=== PATIENT | female | born 1975 | race American Indian/Alaskan Native ===

== ENCOUNTER 2017-10-14 09:34 | Day surgery (SDC) | payer MEDICAID ==
[~2017-10-14 09:34] MED LIST: NACL 0.9% 1000 ML 1,000 ML IV SCH
[2017-10-14] MEDS ORDERED: XYLOCAINE MPF 2% ONE (11:54)
[2017-10-14] MEDS ORDERED: DIPRIVAN 10 MG/ML IV ONE (11:54)
--- NOTE | 2017-10-14 11:58 | Anesthesia Day of Surgery ---
Anesthesia Day of Surgery - Day of Surgery Patient Examined: Yes Patient H&P Reviewed: Yes Patient is NPO: Yes Beta Blockers: No
--- NOTE | 2017-10-14 11:59 | Anesthesia Consultation ---
Anesthesia Consult and Med Hx - Airway Anesthetic Teeth Evaluation: Good ROM Head & Neck: Adequate Mental/Hyoid Distance: Adequate Mallampati Class: Class II Intubation Access Assessment: Probably Good - Pulmonary Exam CTA: Yes - Cardiac Exam Cardiac Exam: No Murmur - Pre-Operative Health Status ASA Pre-Surgery Classification: ASA2 - Pulmonary Hx Smoking: Yes (10 CIGARETTES PER DAY X 12 YRS;) Hx Asthma: No Hx Respiratory Symptoms: No SOB: No COPD: No Home Oxygen Therapy: No Hx Pneumonia: No Hx Sleep Apnea: No - Cardiovascular System Hx Hypertension: No Hx Coronary Artery Disease: No Hx Heart Attack/AMI: No Hx Angina: No Hx Percutaneous Transluminal Coronary Angioplasty (PTCA): No Hx Cardia Arrhythmia: No Hx Pacemaker: No Hx Internal Defibrillator: No Hx Valvular Heart Disease: No Hx Heart Murmur: No Hx Peripheral Vascular Disease: No - Central Nervous System Hx Neuromuscular Disorder: No Hx Seizures: No CVA: No Hx Back Pain: Yes Hx Psychiatric Problems: Yes - Gastrointestinal Hx Ulcer: No Hx Gastroesophageal Reflux Disease: No - Endocrine Hx Renal Disease: No Hx End Stage Renal Disease: No Hx Cirrhosis: No Hx Liver Disease: No Hx Insulin Dependent Diabetes: No Hx Non-Insulin Dependent Diabetes: No Hx Thyroid Disease: No - Hematic Hx Anemia: No Hx Sickle Cell Disease: No - Other Systems Hx Alcohol Use: No Hx Substance Use: No Hx Cancer: No Hx Obesity: Yes
--- NOTE | 2017-10-14 12:04 | Operative Report ---
Operative Report Operative Report: Date: 10/14/2017 Operative Report: Date of procedure: 10/14/2017 Procedure: Esophagogastroduodenoscopy with multiple mucosal biopsies Attending physician: Vineet Segundo MD Category Development Manager: Vineet Segundo MD Indication: Patient is a 42 year-old female who presents with a history of epigastric pain heartburn and dysphagia with nausea and vomiting. Patient is status post gastric bypass. An upper endoscopy is done to assess patient so that treatment may be directed based on the findings. Consent: Informed consent was obtained after advising the patient and family regarding nature of this procedure, its indications, potential benefits as well as possible complications including but not limited to bleeding perforation and adverse reaction to medication, infection as well as other cardiopulmonary complications. An informed written and verbal consent was then obtained after due opportunity was provided for questions and answers. Monitoring: Patient was monitored continuously with pulse oximetry and electrocardiographic recordings as well as blood pressure recordings. Vital signs remained stable throughout this procedure with no untoward events. Preoperative assessment: Patient was assessed immediately prior to this procedure for capacity to tolerate monitored anesthesia care and moderate sedation as well as general anesthesia. Patient's ASA classification is 2, Mallampati class is 2, Hyomental distance is 3. Instrument: [employer] video endoscope Medications: Propofol given intravenously in divided doses. For details please refer to anesthesia records. Description of procedure: Patient was placed in the left lateral decubitus position after achieving sedation, the endoscope was introduced into the esophagus under direct vision. It was then advanced beyond the esophagus into the stomach and then beyond the stomach into the duodenum and to the second portion of the duodenum. It was subsequently withdrawn with careful inspection of all mucosal surfaces with the following findings. Findings: The esophagus is normal. Patient is status post gastric bypass with a small gastric stump. The gastrojejunal anastomosis, this appeared mildly narrowed however the endoscope can easily pass through it. At this area, there was extensive mucosal edema with erythema and multiple erosions. On the jejunal side of the anastomosis, there was a large ulcer. This ulcer was circumferential in its appearance crossing over the entirety of the anastomosis. It had a pale base. There was some blood clot over it which was irrigated suggesting ongoing blood loss. There is no active demonstrable bleed seen however. The area seemed extremely friable, indurated, edematous with a large circumferential ulcer as previously noted on with the edema causing narrowing of the lumen. The jejunum was explored. It appeared normal. The endoscope was then withdrawn back into the perianastomotic area to explain this ulceration on the jejunal side. After careful examination, the endoscope was withdrawn. There were no gross abnormalities seen in the gastric stump otherwise and there was no abnormality seen in the esophagus. Impression: Normal esophagus. Normal gastric stump. Narrowing of the gastrojejunal anastomosis with no obvious stricture formation. Severe gastrojejunnitis. Large marginal ulcer with induration, necrotic base with adherent blood which was irrigated with extensive mucosal edema and tissue denudation. Plan: Begin Omeprazole 40 mg mixed with applesauce twice a day. Carafate suspension 1 g 4 times a day. Maalox 30 mL 4 times a day. Magic mouthwash when necessary for pain control and Tramadol 50 mg by mouth every 6 hourly as needed. Patient to take mechanical soft diet for at least 2 weeks. Repeat endoscopy in 4-6 weeks to check for improvement in the ulcer. If there is no improvement given the extensive ulceration, patient may require surgical revision.
--- NOTE | 2017-10-14 12:38 | Discharge Summary ---
Short Stay Discharge Plan Activity: advance as tolerated Weight Bearing Status: Weight Bear as Tolerated Diet: regular Additional Instructions: Post Sedation D/C Instructions When you return home you may resume your regular diet unless otherwise directed. -Go directly home from the hospital and rest quietly. You may resume normal activities tomorrow. -Do NOT drive, return to work, operate any machinery or make any important personal or business decisions today. -Do NOT drink any alcohol or take nerve or sleeping drugs. They add to the effects of the medicine still present in your body. Follow up with: PRIMARY CARE [Primary Care Provider] - 7 Days
[2017-10-14 12:43] VITALS: BP 119/78
== END 2017-10-14 09:35 | disposition home or self-care (01) ==
LOC: GIO 09:34
PROVIDERS: ATTEND Internal Medicine Gastroenterology
DX: K52.9 Noninfective gastroenteritis and colitis, unspecified (principal); K28.9 Gastrojejunal ulcer, unspecified as acute or chronic, without hemorrhage or perforation; E66.9 Obesity, unspecified; F17.210 Nicotine dependence, cigarettes, uncomplicated; Z98.84 Bariatric surgery status; Z68.28 Body mass index [BMI] 28.0-28.9, adult
CPT/HCPCS: 43235; J2704; J7030

== ENCOUNTER 2018-12-04 13:00 | Day surgery (SDC) | payer MEDICAID ==
[2018-12-04] MEDS ORDERED: XYLOCAINE MPF 2% ONE (14:30)
[2018-12-04] MEDS ORDERED: DIPRIVAN 10 MG/ML IV ONE (14:45)
--- NOTE | 2018-12-04 15:28 | Operative Report ---
Operative Report Operative Report: Date: 12/04/2018 Operative Report: Date of procedure: 12/04/2018 Procedure: Esophagogastroduodenoscopy with multiple mucosal biopsies. Attending physician: Vineet Segundo MD Complaint Evaluation Officer: Vineet Segundo MD Indication: Patient is a 43 -year-old female who presented with a history of recurrent epigastric pain. Patient has a history of a gastric bypass and a prior history of a large marginal ulcer at the gastrojejunostomy anastomosis. She had been treated for a prolonged period of time. It appears recently she also had been taking nonsteroidals. Because of recurrent epigastric pain and recurrence of symptoms in general, an upper endoscopy is done to assess patient, so that treatment may be directed based on the findings. Consent: Informed consent was obtained after advising the patient and family regarding nature of this procedure, its indications, potential benefits as well as possible complications including but not limited to bleeding perforation and adverse reaction to medication, infection as well as other cardiopulmonary complications. An informed written and verbal consent was then obtained after due opportunity was provided for questions and answers. Monitoring: Patient was monitored continuously with pulse oximetry and electrocardiographic recordings as well as blood pressure recordings. Vital signs remained stable throughout this procedure with no untoward events. Preoperative assessment: Patient was assessed immediately prior to this procedure for capacity to tolerate monitored anesthesia care and moderate sedation as well as general anesthesia. Patient's ASA classification is 3, Mallampati class is 2, Hyomental distance is 3. Instrument: Olympus video endoscope: GIF [id number] Medications: Propofol given intravenously in divided doses. For details please refer to anesthesia records. Description of procedure: Patient was placed in the left lateral decubitus position after achieving sedation, the endoscope was introduced into the esophagus under direct vision. It was then advanced beyond the esophagus into the gastric stump and then beyond the stomach into the jejunum. It was subsequently withdrawn with careful inspection of all mucosal surfaces with the following findings. Findings: The esophagus was normal. Patient had multiple gastric erosions with erythema seen. On the jejunal side of the gastrojejunostomy anastomosis, patient had a very large deep ulcer. The endoscope was removed after the examination Impression: Large marginal ulcer at the jejunal side of the gastrojejunostomy anastomosis in patient who is status post gastric bypass. Plan: Continue treatment with proton pump inhibitors. Sliding treatment with Carafate suspension 1 g 4 times a day for 3 months Consider repeat endoscopy after 3 months of treatment Follow patient clinically otherwise. Patient will be observed clinically. Additional recommendations will be made follow-up.
--- NOTE | 2018-12-04 15:29 | Discharge Summary ---
Short Stay Discharge Plan Activity: advance as tolerated Weight Bearing Status: Weight Bear as Tolerated Diet: regular Additional Instructions: Post Sedation D/C Instructions When you return home you may resume your regular diet unless otherwise directed. -Go directly home from the hospital and rest quietly. You may resume normal activities tomorrow. -Do NOT drive, return to work, operate any machinery or make any important personal or business decisions today. -Do NOT drink any alcohol or take nerve or sleeping drugs. They add to the effects of the medicine still present in your body. Follow up with: MARTHA ARZATE NP [Other] - 7 Days
[2018-12-04 16:11] VITALS: BP 152/79
== END 2018-12-04 13:01 | disposition home or self-care (01) ==
LOC: GIO 13:00
PROVIDERS: ATTEND Internal Medicine Gastroenterology
DX: K28.9 Gastrojejunal ulcer, unspecified as acute or chronic, without hemorrhage or perforation (principal); K52.9 Noninfective gastroenteritis and colitis, unspecified; R10.13 Epigastric pain; K21.9 Gastro-esophageal reflux disease without esophagitis; K29.00 Acute gastritis without bleeding; E66.9 Obesity, unspecified; M19.90 Unspecified osteoarthritis, unspecified site; F31.9 Bipolar disorder, unspecified; F41.9 Anxiety disorder, unspecified; F17.210 Nicotine dependence, cigarettes, uncomplicated; Z79.899 Other long term (current) drug therapy; Z68.30 Body mass index [BMI] 30.0-30.9, adult; Z90.710 Acquired absence of both cervix and uterus; Z98.891 History of uterine scar from previous surgery; Z86.2 Personal history of diseases of the blood and blood-forming organs and certain disorders involving the immune mechanism; Z98.890 Other specified postprocedural states
CPT/HCPCS: 43235; J2704; J7030